=== PATIENT | male | born 1985 | race Caucasian/White ===

== ENCOUNTER 2016-11-04 06:25 | Outpatient (CLI) ==
--- NOTE | 2016-11-04 08:41 | STRESS ---
Date of Test: 11/04/16 Reason for Exam: FLUSHING, FAMILY H/O HTN Ordering Physician: FREDDIE SANCHEZ Current Medications: NO MEDICATIONS Physical Findings: S1, S2, NO S3 Resting EKG: SINUS RHYTHM, NO ACUTE CHANGES Target Heart Rate: 159/188 STAGE MPH/GRADE HEART RATE BPM BLOOD PRESSURE mmhg RHYTHM S-T SEGMENT UP DOWN SYMPTOMS,COMMENTS At Rest 79 118/86 SR X NONE 1 1.7/10% 114 138/90 SR X NONE 2 2.5/12% 138 148/88 SR X NONE 3 3.4/14% 4 4.2/16% 5 5.0/18% Immediately After 148 SR X FATIGUE Total Time: 7:00 Maximum Heart Rate Reached: 148 Reason for Termination : FATIGUE 3 MIN POST EXERCISE: HR, 88 BPM, BP 132/80 MMHG INTERPRETATION: 99% OXYGEN SATURATION WITH EXERCISE ON ROOM AIR 1. TEST NEGATIVE FOR ISCHEMIC ST-T WAVE CHANGES 2. NO CHEST PAIN OR DISCOMFORT 3. NO ARRHYTHMIAS 4. BLOOD PRESSURE RESPONSE: BORDERLINE HYPERTENSION RESTING AND WITH EXERCISE MTDD
--- NOTE | 2016-11-04 08:49 | DI ---
Exam: Chest two-view HISTORY: Elevated blood pressure. FINDINGS: Two views of the chest demonstrate moderately expanded lungs with no evidence of pneumoni a or edema. The heart is normal in size and configuration. The pulmonary vasculature is not conges fatuma. The skeletal structures are intact. IMPRESSION: No acute cardiopulmonary disease.
== END 2016-11-04 06:26 | disposition home or self-care (01) ==
LOC: CAR 06:25
PROVIDERS: ATTEND Family Medicine
DX: R23.2 Flushing (principal); I10 Essential (primary) hypertension
CPT/HCPCS: 93017; 93018